=== PATIENT | male | born 1960 ===

== ENCOUNTER 2016-10-11 04:32 | Emergency (ER) | payer OTHER ==
[2016-10-11 04:49] VITALS: BP 147/102; PULSE 104; RESP 16; TEMP 98.8; O2SAT 99
[2016-10-11] MEDS ORDERED: DiphenhydrAMINE 50 mg/ml Inj IVP STA (05:07)
--- NOTE | 2016-10-11 05:50 | ED PDOC ---
HPI: General Adult Time Seen by Provider: 10/11/16 04:47 Chief Complaint (Nursing): Abnormal Skin Integrity Chief Complaint (Provider): rash History Per: Patient History/Exam Limitations: no limitations Onset/Duration Of Symptoms: Days Have you had recent travel within the past 21 days to any of the following countries: [place], [place], [place] or [place]?: No Current Symptoms Are (Timing): Still Present Additional Complaint(s): 55yo male presents to the ED with c/o rash to left shoulder since Tuesday (2 days ago) with some to right shoulder, arms, and legs. Denies new food, new exposures. Took Benadryl but still itching. Past Medical History Reviewed: Historical Data, Nursing Documentation, Vital Signs Vital Signs: Last Vital Signs Temp 98.8 F 10/11/16 04:46 Pulse 104 H 10/11/16 04:46 Resp 16 10/11/16 04:46 BP 147/102 H 10/11/16 04:46 Pulse Ox 99 10/11/16 06:32 - Medical History PMH: HTN - Surgical History Surgical History: No Surg Hx - Family History Family History: States: No Known Family Hx - Home Medications Home Medications: Ambulatory Orders Medication Instructions Recorded Loratadine 10 mg PO DAILY #30 tablet 10/11/16 predniSONE [predniSONE Tab] 60 mg PO DAILY #9 tab 10/11/16 - Allergies Allergies/Adverse Reactions: Allergies Allergy/AdvReac Type Severity Reaction Status Date / Time No Known Allergies Allergy Verified 10/11/16 04:46 Review of Systems ROS Statement: Except As Marked, All Systems Reviewed And Found Negative Skin: Positive for: Rash Physical Exam - Reviewed Nursing Documentation Reviewed: Yes Vital Signs Reviewed: Yes - Physical Exam Appears: Positive for: Well, No Acute Distress Head Exam: Positive for: ATRAUMATIC, NORMAL INSPECTION, NORMOCEPHALIC Skin: Positive for: Warm, Dry, Rash (maculopapular rash worse to left shoulder scattered throughout minimally ) Eye Exam: Positive for: Normal appearance, EOMI, PERRL ENT: Positive for: Normal ENT Inspection Neck: Positive for: Normal, Painless ROM, Supple Cardiovascular/Chest: Positive for: Regular Rate, Rhythm. Negative for: Murmur , Tachycardia Respiratory: Positive for: Normal Breath Sounds. Negative for: Wheezing, Respiratory Distress Gastrointestinal/Abdominal: Positive for: Normal Exam, Soft. Negative for: Tenderness Back: Positive for: Normal Inspection Extremity: Positive for: Normal ROM. Negative for: Deformity, Swelling Neurologic/Psych: Positive for: Alert, Oriented - ECG O2 Sat by Pulse Oximetry: 99 Pulse Ox Interpretation: Normal (RA) Medical Decision Making Medical Decision Makin: Impression: urticaria/allergic dermatitis Plan: Benadryl 50mg IVP, Pepcid 20mg IVP, solu-medrol 125mg IVP reassess 0630: Patient's symptoms have improved and he is feeling better. Stable for d/ c. Return precautions given for worsening or concerning symptoms. Scribe Attestation: Documented by Zahida Gray acting as a scribe for Oscar Pastrana MD. Provider Scribe Attestation: All medical record entries made by the Scribe were at my direction and personally dictated by me. I have reviewed the chart and agree that the record accurately reflects my personal performance of the history, physical exam, medical decision making, and the department course for this patient. I have also personally directed, reviewed, and agree with the discharge instructions and disposition. Disposition - Clinical Impression Clinical Impression: Urticaria - Patient ED Disposition Is Patient to be Admitted: No - Disposition Referrals: Huy Carvalho MD [Primary Care Provider] - Disposition: Routine/Home Disposition Time: 06:32 Condition: IMPROVED Prescriptions: Loratadine 10 mg PO DAILY #30 tablet predniSONE [predniSONE Tab] 60 mg PO DAILY #9 tab Instructions: Urticaria (ED), General Allergic Reaction (ED) Print Language: MOHAWK
== END 2016-10-11 06:42 | disposition home or self-care (01) ==
LOC: H.ER 04:32
DX: L50.9 Urticaria, unspecified (principal)

== ENCOUNTER 2017-07-07 06:21 | Emergency (ER) | payer OTHER ==
[2017-07-07 06:26] VITALS: TEMP 98.1; O2SAT 99
--- NOTE | 2017-07-07 07:40 | ED PDOC ---
HPI: General Adult Time Seen by Provider: 07/07/17 07:07 Chief Complaint (Nursing): Trauma Chief Complaint (Provider): Trauma status post fall History Per: Patient History/Exam Limitations: no limitations Current Symptoms Are (Timing): Still Present Additional Complaint(s): 56 year old male presents to the emergency department with a complaint of a headache, back pain, bilateral armpit region pain, and left hip pain after falling in the snow backwards before arrival via ambulance. Denies loss of consciousness or chest pain. Reports taking aspirin. Patient has hypertension and hypercholesterolemia. Past Medical History Reviewed: Historical Data, Nursing Documentation, Vital Signs Vital Signs: Last Vital Signs Temp 98.1 F 07/07/17 06:24 Pulse 88 07/07/17 10:27 Resp 17 07/07/17 10:27 BP 173/72 H 07/07/17 10:27 Pulse Ox 99 07/07/17 10:27 - Medical History PMH: HTN, Hypercholesterolemia - Family History Family History: States: Unknown Family Hx - Social History Current smoker - smoking cessation education provided: No Alcohol: Social Drugs: Denies - Home Medications Home Medications: Ambulatory Orders Medication Instructions Recorded Loratadine 10 mg PO DAILY #30 tablet 10/11/16 predniSONE [predniSONE Tab] 60 mg PO DAILY #9 tab 10/11/16 Cyclobenzaprine [Cyclobenzaprine 10 mg PO TID PRN #15 tab 07/07/17 HCl] Naproxen [Naprosyn] 500 mg PO BID PRN #15 tablet 07/07/17 - Allergies Allergies/Adverse Reactions: Allergies Allergy/AdvReac Type Severity Reaction Status Date / Time No Known Allergies Allergy Verified 10/11/16 04:46 Review of Systems ROS Statement: Except As Marked, All Systems Reviewed And Found Negative (As per HPI, otherwise negative) Constitutional: Negative for: Other (loss of consciousness ) Cardiovascular: Negative for: Chest Pain Musculoskeletal: Positive for: Back Pain, Other (Bilateral armpit pain and left hip pain) Neurological: Positive for: Headache Physical Exam - Reviewed Nursing Documentation Reviewed: Yes Vital Signs Reviewed: Yes - Physical Exam Appears: Positive for: Non-toxic, No Acute Distress Head Exam: Positive for: NORMAL INSPECTION (Hematoma noted to posterior head. No abrasions or lacerations. ) Skin: Positive for: Normal Color, Warm, Dry Eye Exam: Positive for: Normal appearance. Negative for: Conjunctival injection Neck: Positive for: Pain On Movement Of Neck (Tenderness to the cervical spine region) Cardiovascular/Chest: Positive for: Regular Rate, Rhythm. Negative for: Murmur Respiratory: Positive for: Normal Breath Sounds. Negative for: Accessory Muscle Use, Respiratory Distress Extremity: Positive for: Tenderness (Tendernes to the left hip with full ROM), Other (Tenderness to the axilla regions bilaterally). Negative for: Deformity, Swelling Neurologic/Psych: Positive for: Alert, Oriented (x3) - ECG O2 Sat by Pulse Oximetry: 99 (RA) Pulse Ox Interpretation: Normal Medical Decision Making Medical Decision Making: Time: 737 Initial Impression: Pain status post fall on ice Initial Plan: --Morphine 2 mg IM --Cervical Spine CT --Head CT --Left hip x-ray --Reevaluation Time: 918 --Head CT FINDINGS: HEMORRHAGE: No intracranial hemorrhage. BRAIN: No mass effect or edema. No atrophy or chronic microvascular ischemic changes. VENTRICLES: Unremarkable. No hydrocephalus. CALVARIUM: Unremarkable. PARANASAL SINUSES: Unremarkable as visualized. No significant inflammatory changes. MASTOID AIR CELLS: Unremarkable as visualized. No inflammatory changes. OTHER FINDINGS: None. IMPRESSION: No acute intracranial pathology. Time: 922 --Cervical Spine CT FINDINGS: VERTEBRAE: No fracture. Normal alignment. No destructive bony lesion. DISCS/SPINAL CANAL/NEURAL FORAMINA: No significant central canal or neural foraminal stenosis. Discs heights are grossly preserved. PARASPINAL SOFT TISSUES: Unremarkable. OTHER FINDINGS: None. IMPRESSION: No acute fracture. Time: 932 --Left hip x-ray FINDINGS: BONES: No acute fracture JOINTS: Normal. SOFT TISSUES: Normal. OTHER FINDINGS: None. IMPRESSION: No demonstrated fracture or dislocation. Scribe Attestation: Documented by Haley Mack, acting as a scribe for Ina Mascorro MD. Provider Scribe Attestation: All medical record entries made by the Scribe were at my direction and personally dictated by me. I have reviewed the chart and agree that the record accurately reflects my personal performance of the history, physical exam, medical decision making, and the department course for this patient. I have also personally directed, reviewed, and agree with the discharge instructions and disposition. Disposition - Clinical Impression Clinical Impression: Head injury, Musculoskeletal pain - Disposition Referrals: [facility] [Outside] Roselyn Dwyer [Medical Doctor] - Disposition: Routine/Home Disposition Time: 10:24 Condition: STABLE Prescriptions: Cyclobenzaprine [Cyclobenzaprine HCl] 10 mg PO TID PRN #15 tab PRN Reason: Pain Naproxen [Naprosyn] 500 mg PO BID PRN #15 tablet PRN Reason: Pain, Moderate (4-7) Instructions: Closed Head Injury, Muscle and Bone Pain (DC) Forms: [employer] (Bermudian) Print Language: IVORIAN
--- NOTE | 2017-07-07 09:21 | CT ---
PROCEDURE: CT HEAD WITHOUT CONTRAST. HISTORY: Vertigo COMPARISON: None available. TECHNIQUE: Axial computed tomography images were obtained through the head/brain without intravenous contrast. Radiation dose: Total exam DLP = 882.3 mGy-cm. This CT exam was performed using one or more of the following dose reduction techniques: Automated exposure control, adjustment of the mA and/or kV according to patient size, and/or use of iterative reconstruction technique. FINDINGS: HEMORRHAGE: No intracranial hemorrhage. BRAIN: No mass effect or edema. No atrophy or chronic microvascular ischemic changes. VENTRICLES: Unremarkable. No hydrocephalus. CALVARIUM: Unremarkable. PARANASAL SINUSES: Unremarkable as visualized. No significant inflammatory changes. MASTOID AIR CELLS: Unremarkable as visualized. No inflammatory changes. OTHER FINDINGS: None. IMPRESSION: No acute intracranial pathology.
--- NOTE | 2017-07-07 09:25 | CT ---
PROCEDURE: CT Cervical Spine without contrast HISTORY: Vertigo, fall COMPARISON: None available. TECHNIQUE: Axial computed tomography images were obtained of the cervical spine without the use of intravenous contrast. Coronal and sagittal reformatted images were created and reviewed. Radiation dose: Total exam DLP = 615.6 mGy-cm. This CT exam was performed using one or more of the following dose reduction techniques: Automated exposure control, adjustment of the mA and/or kV according to patient size, and/or use of iterative reconstruction technique. FINDINGS: VERTEBRAE: No fracture. Normal alignment. No destructive bony lesion. DISCS/SPINAL CANAL/NEURAL FORAMINA: No significant central canal or neural foraminal stenosis. Discs heights are grossly preserved. PARASPINAL SOFT TISSUES: Unremarkable. OTHER FINDINGS: None. IMPRESSION: No acute fracture.
--- NOTE | 2017-07-07 09:34 | RAD ---
PROCEDURE: Left Hip X-ray Radiographs. HISTORY: Fall COMPARISON: None. FINDINGS: BONES: No acute fracture JOINTS: Normal. SOFT TISSUES: Normal. OTHER FINDINGS: None. IMPRESSION: No demonstrated fracture or dislocation.
[2017-07-07 10:30] VITALS: BP 173/72; PULSE 88; RESP 17
== END 2017-07-07 10:27 | disposition home or self-care (01) ==
LOC: H.ER 06:21
DX: S09.90XA Unspecified injury of head, initial encounter (principal); M25.552 Pain in left hip; W00.0XXA Fall on same level due to ice and snow, initial encounter; Y92.480 Sidewalk as the place of occurrence of the external cause; E78.00 Pure hypercholesterolemia, unspecified; I10 Essential (primary) hypertension
CPT/HCPCS: 70450; 72125; 73502; 96372; 99285; J2270

== ENCOUNTER 2018-04-10 11:23 | Emergency (ER) | payer OTHER ==
[2018-04-10 11:35] VITALS: TEMP 97; BMI 31.4
--- NOTE | 2018-04-10 12:31 | ED PDOC ---
HPI: Skin/Bite Injury Time Seen by Provider: 04/10/18 12:29 Chief Complaint (Nursing): Abnormal Skin Integrity Additional Complaint(s): 57 yo male with PMH of prediabetes, HTN and HLD present to the ED c/o painful and swollen "pimples" on his back. Patient states he had 1 last week that resolves on it's own, but has another one for the last few days that is very painful. Otherwise he denies fever, chills, nausea, vomiting, rashes. Denies having lesions in other parts of the body. PMD: Dr Carver Past Medical History Vital Signs: Last Vital Signs Temp 97 F L 04/10/18 11:34 Pulse 74 04/10/18 11:34 Resp BP 154/85 H 04/10/18 11:34 Pulse Ox 98 04/10/18 11:34 - Medical History PMH: HTN, Hypercholesterolemia - Surgical History Surgical History: Coronary Stent (x2) Other surgeries: R TKR - Family History Family History: States: Unknown Family Hx - Social History Current smoker - smoking cessation education provided: No Ex-Smoker (has not smoked in the last 12 months): No Alcohol: None Drugs: Denies - Home Medications Home Medications: Ambulatory Orders Medication Instructions Recorded Loratadine 10 mg PO DAILY #30 tablet 10/11/16 predniSONE [predniSONE Tab] 60 mg PO DAILY #9 tab 10/11/16 Cyclobenzaprine [Cyclobenzaprine 10 mg PO TID PRN #15 tab 07/07/17 HCl] Naproxen [Naprosyn] 500 mg PO BID PRN #15 tablet 07/07/17 Naproxen [Naprosyn] 500 mg PO Q12H #20 tab 04/10/18 Sulfamethoxazole/Trimethoprim 1 tab PO BID #20 tab 04/10/18 [Bactrim DS 800 mg-160 mg] - Allergies Allergies/Adverse Reactions: Allergies Allergy/AdvReac Type Severity Reaction Status Date / Time No Known Allergies Allergy Verified 10/11/16 04:46 Physical Exam - Reviewed Vital Signs Reviewed: Yes - Physical Exam Appears: Positive for: No Acute Distress Head Exam: Positive for: NORMAL INSPECTION Skin: Positive for: Warm, Dry, Rash (Presence of ~ 3 cm furuncle in the R side upper back red, indurated and very tender to touch. No discharge or oozing noted, no signs of bleeding appreciated. There is another completed healed in the left upper back.) Cardiovascular/Chest: Positive for: Regular Rate, Rhythm. Negative for: Tachycardia Respiratory: Positive for: Normal Breath Sounds. Negative for: Rales, Wheezing Gastrointestinal/Abdominal: Positive for: Soft. Negative for: Tenderness, Distended Neurologic/Psych: Positive for: Alert, floor plan adjuster II-XII, Oriented - ECG O2 Sat by Pulse Oximetry: 98 - Progress ED Course And Treament: 57 yo male presents with Furunculosis Plan: No fever, chills Nothing to drain at this point Will discharge with PO bactrim and pain meds. Disposition - Clinical Impression Clinical Impression: Forunculosis - Patient ED Disposition Is Patient to be Admitted: No - Disposition Referrals: [facility] [Outside] Jessica Carver MD [IM] - Disposition: Routine/Home Disposition Time: 12:30 Condition: STABLE Additional Instructions: f/u with PCP in 2-3 days Warm compresses 3 times a day Naproxen for pain Return if worsening sx Prescriptions: Naproxen [Naprosyn] 500 mg PO Q12H #20 tab Sulfamethoxazole/Trimethoprim [Bactrim DS 800 mg-160 mg] 1 tab PO BID #20 tab Instructions: Boil, Grover (DC) Forms: [employer] (Cuban) Print Language: KHMER
[2018-04-10 14:34] VITALS: BP 138/70; PULSE 78; RESP 16; O2SAT 99
== END 2018-04-10 13:05 | disposition home or self-care (01) ==
LOC: H.ER 11:23
DX: L02.222 Furuncle of back [any part, except buttock and flank] (principal); I10 Essential (primary) hypertension; R73.03 Prediabetes; Z87.891 Personal history of nicotine dependence; Z95.5 Presence of coronary angioplasty implant and graft